=== PATIENT | male | born 1985 | race Caucasian/White ===

== ENCOUNTER 2016-08-05 18:45 | Emergency (ER) | payer OTHER ==
[~2016-08-05] VITALS: Ht 182.9 cm; Wt 127.0 kg
[~2016-08-05 18:45] MED LIST: FLAGYL 500MG.500 MG PO; FLEXERIL10 MG PO; Mobic7.5 MG PO; NAPROXEN SODIU500 MG PO
[2016-08-05] MEDS ORDERED: PREDNISONE 20MG20 MG PO (20:50)
--- NOTE | 2016-08-05 20:55 | Emergency Room Report ---
History of Present Illness Time Seen by [id number] Presenting Problem in Triage Pt arrived:Walked Presenting Problem:C/O PAIN IN R WRIST. PT STATES WAS A WORK TODAY USING A LARGE WRENCH THE WRENCH BROKE, PT STATES HE THEN HAD "POPPING" SENSATION IN R WRIST. 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 N Clinical Suspician of Infection? N Mental Status: 1 - Regular (Normal Baseline) Sepsis Risk:Low Sepsis Risk Have you (or family members/close friends) recently traveled outside the [place]? N If Yes, where/when: Have you had exposure to infectious disease within the past month? N TB? Other? Specify: Source patient, RN notes reviewed, old records Exam Limitations no limitations Comment wrench broke at work and injured rt wrist at work- heard popping sd and has pain and dec rom Cardiac Chest Pain Chest pain indicative of cardiac No Timing/Duration this evening Severity moderate ALLERGIES Coded Allergies: No Known Allergies (08/05/16) Home Medications Reported Medications No Known Home Medications History Medical History General CAD? No Angina: No CT: No Hypertension? No Hyperlipidemia? No CHF? No DVT? No PE? No COPD? No Asthma? No Anemia? No GERD? No Gastric ulcers? No GI Bleed? No Hernia? No Thyroid Problems? No Hypothyroidism? No CVA? No Seizures? No Diabetes? No Insulin Dependent: No Insulin Pump: No Home FSBS? No Renal Insuffiency? No End Stage Renal Disease? No UTI? No Stones? No BPH? No GB Disease: No Nephritic Syndrome? No Asplenia? No Hepatitis? No Sickle Cell Disease? No Arthritis? No Migraines? No Cataracts? No Glaucoma? No MRSA? No HIV? No TB? No Anxiety? No Depression? No Cancer? No More? Yes Additional hx: 2002 LEFT GREAT TOE REATTACHED Immunization Hx DT/Tetanus 5-10 Years Ago Surgical Hx Previous Surgery?Y TOE SURGERY POLYPS REMOVED Social History Smoking Hx Smoker: Never Smoker Tobacco: No Alcohol Alcohol: No Drugs none Additionial History Additional History workman comp injury Review of Systems All Other Systems Reviewed and Negative Constitutional denies fever Eyes denies drainage ENT denies: ear pain, epistaxis, throat pain. Respiratory denies cough, denies shortness of breath, denies wheezing Cardiovascular denies chest pain, denies palpitations, denies syncope Gastrointestinal denies abdominal pain, denies diarrhea, denies vomiting Genitourinary denies: dysuria, frequency, hesitancy, hematuria. Musculoskeletal denies back pain, joint pain, joint swelling, denies neck pain Skin denies rash Psychiatric/Neurological denies headache, denies seizure Physical Exam Vital Signs Vital Signs Date Time Temp Pulse Resp B/P Pulse O2 O2 Flow FiO2 Ox Delivery Rate 08/05 2011 79 16 133/85 96 08/05 1849 98.0 94 18 139/79 97 - WBC >12,000 or <4,000 or 10% bands? 2 or more SIRS Criteria Met? B/P:133/85 MAP:99 Creatinine >2.0? UA output<0.5ml/kg/hr for 2 hrs? Platelet count >100,000? Lactate >2.0mmol/1? INR >1.2 or PTT > than 60 sec? Evidence of Organ Dysfunction? Provider documented clinical suspician of infection? N Sepsis Criteria Count: 1 Sepsis Risk: Low Sepsis Risk General Appearance no apparent distress Eye Exam - bilateral eye PERRL, bilateral eye EOMI Ear, Nose, Throat normal ENT inspection Neck supple Respiratory Status No: respiratory distress. 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 No Results/Orders Current Medication Orders Sig/Yvette Start time Last Medication Dose Route Stop Time Status Admin Acetaminophen 1,000 MG ONCE ONE 08/05 1899 DC 08/05 PO 08/05 Acetaminophen 0 .STK-MED ONE 08/05 1857 DC PO Orders Procedure Date/time Status WRIST-3 VIEWS-RT 08/05 1857 Active XRAY/CT/US XRAY/CT/US XRAY wrist XR interpretation by reviewed by me Xray Results no fracture seen Departure Departure Time of Disposition 2048 Disposition DC Home or Self Care(routine) Clinical Impression Primary Impression: Right wrist injury Qualifiers: Encounter type: initial encounter Qualified Code: S69.91XA - Unspecified injury of right wrist, hand and finger(s), initial encounter Condition STABLE Referrals Haja GOODMAN,Davion Garrison (Family) Patient Instructions DI for Wrist Pain Additional Instructions ice and wear splint and see pcp wednesday - comp form completed Discharge Counseling Counseled pt/family regarding diagnosis, test results, medications/RX, follow up needs Prescriptions Current Visit Scripts Prednisone (Prednisone 20MG) 20 MG PO BID #10 TAB ED Critical Care Critical Care No at 2054
[2016-08-05 21:10] VITALS: BP 133/85
--- NOTE | 2016-08-06 05:13 | RADIOLOGY REPORT PS360 ---
WRIST-3 VIEWS-RT HISTORY: Pain following injury INJURY AT WORK COMPARISON: None FINDINGS: No fracture or dislocation. No lytic or blastic change. There is normal mineralization.. The joint spaces are well-preserved. No significant degenerative/arthritic changes. No erosive changes evident.. IMPRESSION: Negative wrist
== END 2016-08-05 21:10 | disposition home or self-care (01) ==
LOC: ER 18:45
PROC: 2W3CX1Z Immobilization of Right Lower Arm using Splint (ICD-10-PCS; principal; 2016-08-05)
DX: S69.91XA Unspecified injury of right wrist, hand and finger(s), initial encounter (principal); X50.0XXA Overexertion from strenuous movement or load, initial encounter; Y92.69 Other specified industrial and construction area as the place of occurrence of the external cause

== ENCOUNTER → 2016-08-18 | Outpatient (CLI) | payer OTHER ==
[~2016-08-18] MED LIST changes: +PREDNISONE 20MG20 MG PO
--- NOTE | 2016-08-18 09:53 | RADIOLOGY REPORT PS360 ---
WRIST-3 VIEWS-RT HISTORY: RT WRIST PAIN ORDERING PHYSICIAN: ANA JAUREGUI MD PATIENT AGE: 31 years COMPARISON: None FINDINGS: No fracture or dislocation. No lytic or blastic change. There is normal mineralization.. The joint spaces are well-preserved. No significant degenerative/arthritic changes. No erosive changes evident.. IMPRESSION: Negative wrist
== END ==
LOC: RAD 09:12
DX: M25.531 Pain in right wrist (principal)

== ENCOUNTER → 2017-05-20 | Outpatient (CLI) | payer OTHER ==
[2017-05-20 13:57] LABS: HEMOGLOBIN 15.8 g/dL (14.1-18.0); LYMPH # 2.7 K/mm3 (0.7-4.5); LYMPH % 31.5 % (10-50)
[2017-05-20 14:04] LABS: BUN 9 mg/dL (7-18)
[2017-05-20 14:13] LABS: GFR (ESTIMATED) 98 ML/MIN (>60)
== END ==
LOC: LAB 12:41
PROVIDERS: Nurse Practitioner Family
DX: R53.83 Other fatigue (principal); E55.9 Vitamin D deficiency, unspecified